=== PATIENT | female | born 1960 | race American Indian/Alaskan Native ===

== ENCOUNTER 2016-07-20 14:38 | Outpatient (CLI) | payer BC ==
--- NOTE | 2016-07-20 16:39 | Mammography Report ---
BILATERAL DIGITAL SCREENING MAMMOGRAM WITH CAD: 07/20/16 14:38:00 CLINICAL: Routine screening.Breast cancer survivor status post right partial mastectomy and radiation therapy. COMPARISON:05/13/15 FINDINGS: The breasts are predominantly fatty with a few residual fibroglandular densities. Stable right upper outer postsurgical scar with surgical clips. Stable right benign fat necrosis with a 2.5 cm oil cyst. No mass, suspicious architectural distortion or suspicious calcifications. IMPRESSION: No mammographic evidence of malignancy. BI-RADS CATEGORY: 2 -- Benign RECOMMENDATION: Routine mammographic screening in one year. COMMENT: Patient follow-up letters are generated via our [employer] application.
== END 2016-07-20 14:39 | disposition home or self-care (01) ==
LOC: SPVWC 14:38
PROVIDERS: ATTEND Internal Medicine
DX: Z12.31 Encounter for screening mammogram for malignant neoplasm of breast (principal)
CPT/HCPCS: 77067; G0202

== ENCOUNTER 2017-07-22 10:37 | Outpatient (CLI) | payer BC ==
--- NOTE | 2017-07-22 15:48 | Mammography Report ---
BILATERAL DIGITAL SCREENING MAMMOGRAM WITH CAD: 07/22/17 10:37:00 CLINICAL: Routine screening.Breast cancer survivor status post right partial mastectomy with radiation therapy. COMPARISON:07/20/16 FINDINGS: The breasts are mostly fatty. Stable right upper outer postsurgical scar with surgical clips and benign calcifications. Benign fat necrosis in the upper-outer right breast with a 2.5 cm oil cyst. No mass, suspicious architectural distortion or suspicious calcifications. IMPRESSION: No mammographic evidence of malignancy. BI-RADS CATEGORY: 2 -- Benign RECOMMENDATION: Routine mammographic screening in one year. COMMENT: Patient follow-up letters are generated via our [email or web address] application.
== END 2017-07-22 10:38 | disposition home or self-care (01) ==
LOC: SPVWC 10:37
PROVIDERS: ATTEND Internal Medicine
DX: Z12.31 Encounter for screening mammogram for malignant neoplasm of breast (principal); Z85.3 Personal history of malignant neoplasm of breast; Z90.11 Acquired absence of right breast and nipple
CPT/HCPCS: 77067

== ENCOUNTER 2018-07-19 13:51 | Outpatient (CLI) | payer OTHER ==
--- NOTE | 2018-07-19 16:00 | Mammography Report ---
BILATERAL DIGITAL SCREENING MAMMOGRAM WITH CAD: 07/19/18 13:51:00 CLINICAL: Routine screening.Breast cancer survivor status post right partial mastectomy with radiation therapy. COMPARISON:07/22/17 FINDINGS: The breasts are mostly fatty. Stable right upper outer postsurgical scar with numerous surgical clips. Stable benign fat necrosis in the upper-outer right breast with a 2.5 cm benign oil cyst. No mass, suspicious architectural distortion or suspicious calcifications. IMPRESSION: No mammographic evidence of malignancy. BI-RADS CATEGORY: 2 -- Benign RECOMMENDATION: Routine mammographic screening in one year. COMMENT: Patient follow-up letters are generated via our [employer] application.
== END 2018-07-19 13:52 | disposition home or self-care (01) ==
LOC: SPVWC 13:51
PROVIDERS: ATTEND Obstetrics & Gynecology
DX: Z12.31 Encounter for screening mammogram for malignant neoplasm of breast (principal); I10 Essential (primary) hypertension
CPT/HCPCS: 77067